=== PATIENT | male | born 1995 | race African-American/Black ===

== ENCOUNTER 2018-01-04 20:19 | Emergency (ER) | payer SELFPAY ==
[2018-01-04] MEDS ORDERED: Ketorolac Tromethamine 30 MG/ML VIAL ONE (21:16)
--- NOTE | 2018-01-04 21:49 | RAD ---
THREE VIEWS RIGHT WRIST: 01/04/18 HISTORY: Hurt right wrist last week and bumped it again today. Swelling to right wrist. FINDINGS: There is a fracture involving the lateral aspect of the distal right wrist with intra-articular exte nsion of the fracture with intra-articular gap measuring approximately 1 mm. there may potentially be a subtle horizontal fracture associated with this vertically oriented fracture suggesting this repre sents a mildly comminuted fracture. There is a slightly displaced fracture involving the ulnar styloi d process. IMPRESSION: 1. Mildly comminuted fracture distal right radial metaphysis with intra-articular extension of t he fracture and minimal intra-articular gap. 2. Fracture ulnar styloid process. POS: [facility]
[2018-01-04] MEDS ORDERED: traMADol HCl 50 MG TAB ONE (21:55)
[2018-01-04] MEDS ORDERED: Acetaminophen 500 MG TAB ONE (21:55)
== END 2018-01-04 22:04 | disposition home or self-care (01) ==
LOC: ERS 20:19
DX: S52.571A Other intraarticular fracture of lower end of right radius, initial encounter for closed fracture (principal); S52.611A Displaced fracture of right ulna styloid process, initial encounter for closed fracture; F17.210 Nicotine dependence, cigarettes, uncomplicated; W19.XXXA Unspecified fall, initial encounter
CPT/HCPCS: 96372; J1885